=== PATIENT | male | born 1965 | race Caucasian/White ===

== ENCOUNTER 2018-09-07 14:40 | Emergency (ER) | payer OTHER ==
[~2018-09-07] VITALS: Ht 170.2 cm; Wt 95.9 kg
[2018-09-07 15:17] VITALS: BP 142/89
--- NOTE | 2018-09-07 15:20 | NUR ---
PT AMBULATES BACK TO THE LOBBY
--- NOTE | 2018-09-07 15:31 | NUR ---
PT C/O HIGH BLOOD PRESSURE THIS MORNING WITH SOME NAUSEA AND DIZZINESS; DENIES H/A, OR VOMITING, CP/SOB. PT STEADY GAIT AMBULATES W/O ASSISTANCE. GCS 15, A/OX4, PUPILS PERRLA 3MM. NO PAIN AT THIS TIME.
--- NOTE | 2018-09-07 15:59 | NUR ---
EDMD EVALUATING PT AT BEDSIDE PERFORMED MSE
[2018-09-07 16:30] VITALS: BP 125/71
--- NOTE | 2018-09-07 16:31 | NUR ---
Patient discharged with v/s stable. Written and verbal after care instructions given and explained. Patient alert, oriented and verbalized understanding of instructions. Ambulatory with steady gait. All questions addressed prior to discharge. ID band removed. Patient advised to follow up with PMD. Rx of BENAZAPRIL HYDROCHLORIDE given. Patient educated on indication of medication including possible reaction and side effects. Opportunity to ask questions provided and answered.
== END 2018-09-07 16:31 | disposition home or self-care (01) ==
LOC: MED 14:40
DX: I10 Essential (primary) hypertension (principal)
CPT/HCPCS: 99283